=== PATIENT | female | born 1945 | race Caucasian/White ===

== ENCOUNTER 2019-02-25 12:21 | Inpatient (IN) | payer OTHER ==
[~2019-02-25] VITALS: Ht 167.6 cm; Wt 89.4 kg
--- NOTE | ~2019-02-25 | H ---
[facility] [place] [address] HISTORY AND PHYSICAL Name: MEI LÓPEZ Room #: 206-P ADM IN M.R.#: [id number] Admission: 02/25/19 Attend Phys: Pam Jorge MD Discharge: Date of : 49 Report #: [id number] THIS REPORT FOR: //name// CC: Silva Jorge DATE OF SERVICE: 02/25/2019 PRIMARY CARE PHYSICIAN: Dr. Pack. EMERGENCY CONTACT: Mr. Vinicio López, her son, at [phone]. CHIEF COMPLAINT: Chest pain. HISTORY OF PRESENT ILLNESS: The patient is a very pleasant 73-year-old female with a known history of hyperlipidemia, esophageal dilatation and chronic long-term dysphagia with a recent EGD done on 02/06/2019 at [facility]. The patient informs me that she has been doing fine after the EGD, her dysphagia symptoms have improved and overall she had been doing good; however, what happened today was something that she had never experienced before, the pain started in midsternal area and moved over to the left side under the breast area and then she felt like there was a belt all around her chest associated with lightheadedness and then the pain radiated to the upper back area with the pressure as if somebody is standing on her back and she got lightheaded. The patient informs me that she did not pass out. She was alert and awake and oriented all the time and her son called 911. When the paramedics gave her aspirin, nitroglycerin and fentanyl, the patient had significant relief of symptoms and by the time she arrived in the Emergency Room, her chest pain had completely resolved and she had only discomfort in the upper mid back area, which was also not as bad as she had before. 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 The patient denies any referred pain to the shoulder or arm or jaw or epigastric area. The patient has not had any hematochezia, melena and has not had any nausea or vomiting associated with this chest pain. The patient denies any dyspnea associated with this chest pain and during the exam, when asked about the pleuritic component to the chest pain, the patient had absolutely no chest pain with deep breathing and the patient denied any pleuritic component at home either. She denied any [facility] [address] [place] [address] HISTORY AND PHYSICAL Name: MEI LÓPEZ Room #: 206-P ADM IN M.R.#: [id number] Admission: 02/25/19 Attend Phys: Pam Jorge MD Discharge: Date of : 47 Report #: [id number] associated fever, chills, night sweats, cough or sputum production or sinus drainage in recent past. PAST MEDICAL HISTORY: Significant for: 1. Hyperlipidemia. 2. Chronic dysphagia. 3. Chronic constipation and irritable bowel syndrome. 4. Obesity. 5. Lot of stress in recent past for last 1 and 1/2 years. PAST SURGICAL HISTORY: Significant for lung surgery when the patient was 42 some years old with a spot on the lung, which was nonmalignant and had one-third of the lung removed at that time, the patient also had cholecystectomy 12 years ago and also had breast biopsy which was negative. 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 ALLERGIES: The patient has never had colonoscopy. FAMILY HISTORY: Mother with hypertension and Alzheimer's dementia, at the age of 89 years. Father with heart problems and aortic aneurysm and prostate cancer, but at the age of 87 years. CURRENT MEDICATIONS: 1. Vicodin p.r.n. for pain. 2. BuSpar for anxiety. 3. Levothyroxine for hypothyroidism. 4. Simvastatin for hyperlipidemia. 6. Aspirin 81 mg daily and she had taken aspirin today. REVIEW OF SYSTEMS: CONSTITUTIONAL: No fever, chills, night sweats. No weight gain or weight loss. HEENT: No sore throat, sinus drainage, ear infection. PULMONARY: Denies any cough or sputum production or dyspnea or pleuritic chest pain. CARDIOVASCULAR: Midsternal chest pain, which radiated to the left chest area and then to the back, but denies any orthopnea, paroxysmal nocturnal dyspnea or exertional dyspnea or exertional chest pain prior to this episode today. Denies any diaphoresis or dizziness associated with it. GASTROINTESTINAL: The patient denies any nausea, vomiting, diarrhea. Has had chronic dysphagia and chronic rectal tenesmus and chronic hemorrhoid related issues. The EGD had been done recently, but no other symptoms. No hematochezia or melena. GENITOURINARY: Denies any dysuria, hematuria, frequency or urgency of urination. MUSCULOSKELETAL: Denies any joint pain or swelling. SKIN: Denies any rash. [facility] [address] [place] [address] HISTORY AND PHYSICAL Name: MEI LÓPEZ Room #: 206-P [facility] IN .R.#: [id number] Admission: 02/25/19 Attend Phys: Pam Jorge MD Discharge: Date of : 47 Report #: [id number] NEUROLOGICAL: Denies any focal weakness or numbness or any TIA or stroke symptoms. PHYSICAL EXAMINATION: VITAL SIGNS: When the patient presented to the ER, temperature 36.7, heart rate 68, respirations 18, blood pressure 135/68, pulse oximetry 100% on room air. Body mass index of 33.1. GENERAL: Alert and oriented to time, place and person, very pleasant, lean and thin-appearing female who is very anxious and very stressed and tearful when she is talking about her passing away and leaving no life insurance or no financial resources for her and her son, but is absolutely in no cardiopulmonary distress. HEENT: Normocephalic, atraumatic. Pupils equally round, reactive to light. Conjunctivae clear. Sclerae nonicteric. Oropharynx clear. Mucous membranes moist. NECK: Supple, no JVD, no lymphadenopathy. HEART: S1, S2, regular. No murmur, no S3, no S4. No chest wall tenderness elicited. No pleuritic component to chest pain detected. LUNGS: Clear to auscultation bilaterally without any crackles or wheezes. ABDOMEN: Soft, nontender, nondistended, normal active bowel sounds. EXTREMITIES: No edema of both lower extremities. Pedal pulses present 2+. NEUROLOGIC: Completely nonfocal. RECTAL: The patient had rectal exam done by the ER provider and so I did not do rectal exam and Hemoccult was negative. LABORATORY DATA: Troponin less than 0.06 x 2. WBC 7.0, hemoglobin 13.8, hematocrit 42.6, platelet count 300, segmented neutrophil 66.9%. No bandemia noted. Chemistries indicate sodium 138, potassium 3.6, chloride 104, bicarbonate 28, anion gap 6, BUN 9, creatinine 1.1, GFR 49, glucose 102, calcium 9.5, total bilirubin 0.8, AST 20, ALT 22, alkaline phosphatase 89. Troponin I less than 0.06. Total protein 7.5, albumin 3.5. IMAGING: Electrocardiogram indicates abnormal R-wave progression with early transition and left ventricular hypertrophy noted and old inferior infarct noted. Chest x-ray indicates no acute cardiopulmonary abnormality. An elevated right hemidiaphragm noted. ASSESSMENT AND PLAN: 1. Nonexertional chest pain at rest with significant stress and hyperlipidemia. The patient is a lifetime nontobacco user and does not have any history of diabetes and hypertension; however, a family history of heart disease in the father has been noted. The patient has received 325 mg of aspirin by EMS and also nitroglycerin as well as fentanyl and that helped relieve her symptoms significantly. At this time, I would go ahead and continue 3 sets of cardiac [address] [address] HISTORY AND PHYSICAL Name: MEI LÓPEZ Room #: 206-P ADM IN M.R.#: [id number] Admission: 02/25/19 Attend Phys: Pam Jorge MD Discharge: Date of : 47 Report #: [id number] enzymes and will get echocardiogram tomorrow morning and Cardiology consult has been obtained by the Emergency Room provider. 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 If it is abnormal, then we will get a ventilation/perfusion scan. I would also go ahead and get TSH and D-dimer through the blood work. 2. Hemorrhoids and chronic blood loss and rectal tenesmus. We will go ahead and give her hydrocortisone suppository and we will also start Colace 100 mg daily and would consult Gastroenterology and will give intravenous Pepcid for gastrointestinal prophylaxis. Because of the active bleeding from hemorrhoids intermittently, I am not going to start the patient on Lovenox or heparin; however, when D-dimer is elevated, then we will give 1 time dose of Lovenox. 3. Renal insufficiency. The patient does not have any history of renal insufficiency and her GFR is 49 and a creatinine of 1.1. Would give gentle intravenous fluids overnight and recheck kidney function tomorrow morning. Keep potassium above 4 and magnesium above 2 and plan of care was discussed with the patient and her son who is present at the bedside and the patient wishes to be full code. Orders are written. By: [id number] Pam Jorge MD /nt
[~2019-02-25 12:21] MED LIST: ASPIR 8181 MG PO; BUSPIRONE HCL10 MG; IMIPRAMINE HCL10 M2 PO; LEVOTHYROXINE0.05 MG; NORCO 5-325 TA1 EACH PO; SIMVASTATIN10 MG
[2019-02-25 12:22] VITALS: BP 135/68
[2019-02-25 12:51] LABS: ABSOLUTE NEUTROPHILS 4.7 thou/uL (1.4-8.2); BASOPHILS 1.2 % (0.0-2.0); EOSINOPHILS 1.8 % (0.0-3.0); HEMATOCRIT 42.6 % (37.0-47.0); HEMOGLOBIN 13.8 gm/dL (12.0-15.0); LYMPHOCYTES 20.9 % (24.0-44.0); MCH 28.8 pg (26.0-34.0); MCHC 32.3 g/dL (28.0-37.0); MCV 89.1 fL (80.0-100.0); MONOCYTES 9.2 % (1.0-8.0); PLATELET COUNT 300 thou/uL (150-400); POLYS 66.9 % (36.0-66.0); RBC 4.78 mil/uL (4.20-5.00); RDW 15.4 % (10.5-14.5)
[2019-02-25 13:00] LABS: ANION GAP 6 mmol/L (7-16); BUN 9 mg/dL (7-18); CALCIUM 9.5 mg/dL (8.5-10.1); CHLORIDE 104 mmol/L (98-107); CO2 28 mmol/L (21-32); CREATININE 1.1 mg/dL (0.6-1.0); GLUCOSE 102 mg/dL (74-106); POTASSIUM 3.6 mmol/L (3.5-5.1); SODIUM 138 mmol/L (136-145)
[2019-02-25 13:10] LABS: ALBUMIN 3.5 g/dL (3.4-5.0); SGOT 20 U/L (15-37); SGPT 22 U/L (30-65); TOTAL BILIRUBIN 0.8 mg/dL (<0.1-1.0); TOTAL PROTEIN 7.5 g/dL (6.4-8.2); TROPONIN-I <0.06 ng/mL (<0.06)
[2019-02-25 14:08] VITALS: BP 127/61
[2019-02-25 15:00] VITALS: BP 135/77
--- NOTE | 2019-02-25 17:09 | NUR ---
PT CARE ASSUMED APPROX 1500. ARRIVED FROM ED WITH SON. ASSESSMENT CHARTED. PT DENIES PAIN AND SOA. VSS. WEANED TO RA. PT UP WITH STEADY GAIT. ORIENTED TO UNIT AND ROOM. BEDSIDE SWALLOW EVAL DONE AND PT WAS CLEARED FOR [facility] SOFT DIET. PT AGREEABLE. UPDATED TO POC. PT AND SON DENY QUESTIONS OR CONCERNS REGARDING POC. NO DISTRESS NOTED.
[2019-02-25 17:44] LABS: LIPASE 52 U/L (73-393)
[2019-02-25 18:05] LABS: TSH 25.55 uIU/mL (0.358-3.740)
[2019-02-25 19:49] LABS: AMYLASE 29 U/L (25-115)
[2019-02-25 21:00] VITALS: BP 127/49
[2019-02-26 00:14] VITALS: BP 127/56
--- NOTE | 2019-02-26 01:39 | NUR ---
ASSUMED CARE OF PATIENT AT 1900. VSS, AFEBRILE. ORDERS RECEIVED FOR STAT CTA. PATIENT TAKEN DOWN, RESULTS IN CHART. STARTED ON IV FLUIDS. DENIES ANY FURTHER PAIN, INSTRUCTIONS GIVEN TO CALL RN IMMEDIATELY IF PAIN RETURNS. STATES SHE HAS BEEN SEEING DR WILSON, A GI DR. PHONE # [phone]. HAD ESOPHAGEAL DILATION IN JANUARY. WAS TOLD THAT SHE WOULD HAVE TO HAVE THIS PROCEDURE AGAIN IN THE FUTURE. RESTING WELL AT THIS TIME, POC GOALS ESTABLISHED. WILL CONTINUE TO MONITOR.
[2019-02-26 04:32] VITALS: BP 139/71
[2019-02-26 05:31] LABS: ABSOLUTE NEUTROPHILS 3.9 thou/uL (1.4-8.2); BASOPHILS 0.7 % (0.0-2.0); EOSINOPHILS 2.3 % (0.0-3.0); HEMATOCRIT 38.6 % (37.0-47.0); HEMOGLOBIN 12.5 gm/dL (12.0-15.0); LYMPHOCYTES 19.8 % (24.0-44.0); MCH 28.9 pg (26.0-34.0); MCHC 32.5 g/dL (28.0-37.0); MCV 89.1 fL (80.0-100.0); MONOCYTES 11.4 % (1.0-8.0); PLATELET COUNT 269 thou/uL (150-400); POLYS 65.8 % (36.0-66.0); RBC 4.33 mil/uL (4.20-5.00); RDW 15.7 % (10.5-14.5); WBC 5.9 thou/uL (4.0-11.0)
[2019-02-26 05:51] LABS: ALBUMIN 3.1 g/dL (3.4-5.0); CALCIUM 8.7 mg/dL (8.5-10.1); TOTAL BILIRUBIN 0.5 mg/dL (<0.1-1.0); TOTAL PROTEIN 6.6 g/dL (6.4-8.2)
[2019-02-26 05:54] LABS: POTASSIUM 4.7 mmol/L (3.5-5.1)
[2019-02-26 08:00] VITALS: BP 136/80
--- NOTE | 2019-02-26 10:11 | EKG ---
[place] [address] [facility] [address] ELECTROCARDIOGRAM REPORT Name: MEI PATEL Room #: 206-P ADM IN M.R.#: [id number] Admission: 02/25/19 Attend Phys: Pam Jorge MD Discharge: Date of : 47 Report #: [id number] THIS REPORT FOR: //name// [facility] ED Test Date: 2019-02-25 Test Time: 12:24:31 Pat Name: MEI PATEL Department: Room: 206 Gender: F Cpas: SILVESTRE : 1945 Requested By: Bibi Rdz Order Number: [id number] MD: Stephen Verdugo Measurements Intervals [place] Rate: 86 P: 36 MN: 143 QRS: 5 QRSD: 114 T: 70 QT: 398 QTc: 476 Interpretive Statements Sinus rhythm Nonspecific T wave abnormality Borderline prolonged QT interval Compared to ECG 07/01/2004 00:47:43 No significant change was found Electronically Signed On 02-26-2019 10:10:58 WANT AD RECEIVER by Stephen Verdugo [email or web address] <ELECTRONICALLY SIGNED> By: Stephen Verdugo MD, [facility] 02/26/19 1010 1224 1224 Stephen Verdugo MD, [facility] /EPI
--- NOTE | 2019-02-26 10:17 | EKG ---
[place] [address] [facility] [place] [address] ELECTROCARDIOGRAM REPORT Name: MEI PATEL Room #: 206-P ADM IN M.R.#: [id number] Admission: 02/25/19 Attend Phys: Pam Jorge MD Discharge: Date of : 47 Report #: [id number] THIS REPORT FOR: //name// [facility] Test Date: 2019-02-25 Test Time: 16:00:06 Pat Name: MEI PATEL Department: Room: 206 Gender: F Pediatric Social Worker: Oren ALEXANDER : 1945 Requested By: Pam Jorge Order Number: [id number] MD: Stephen Verdugo Measurements Intervals [place] Rate: 66 P: 12 MO: 169 QRS: -16 QRSD: 98 T: 32 QT: 415 QTc: 435 Interpretive Statements Sinus rhythm Abnormal R-wave progression, early transition Left ventricular hypertrophy Compared to ECG 07/01/2004 00:47:43 No significant change was found Electronically Signed On 02-26-2019 10:16:50 CHECKER IN by Stephen Verdugo [email or web address] <ELECTRONICALLY SIGNED> By: Stephen Verdugo MD, [facility] 02/26/19 1016 1600 1600 Stephen Verdugo MD, [facility] /EPI
--- NOTE | 2019-02-26 10:19 | EKG ---
[place] [address] [facility] [place] [address] ELECTROCARDIOGRAM REPORT Name: MEI PATEL Room #: 206-P ADM IN M.R.#: [id number] Admission: 02/25/19 Attend Phys: Pam Jorge MD Discharge: Date of : 47 Report #: [id number] THIS REPORT FOR: //name// [facility] Test Date: 2019-02-25 Test Time: 17:51:40 Pat Name: MEI PATEL Department: Room: 206 P Gender: F [employer] Supervisor: Oren ALEXANDER : 1945 Requested By: Stephen Verdugo Order Number: [id number] MD: Stephen Verdugo Measurements Intervals [place] Rate: 76 P: 20 VA: 27 QRS: -1 QRSD: 120 T: 61 QT: 427 QTc: 481 Interpretive Statements Sinus rhythm Left ventricular hypertrophy Compared to ECG 07/01/2004 00:47:43 No significant change was found Electronically Signed On 02-26-2019 10:19:[address]NA[address] by Stephen Verdugo [email or web address] <ELECTRONICALLY SIGNED> By: Stephen Verdugo MD, [facility] 02/26/19 1019 1751 175 Stephen Verdugo MD, [facility] /EPI
[2019-02-26 11:00] VITALS: BP 141/66
--- NOTE | 2019-02-26 11:07 | HC ---
[facility] [place] [address] CONSULTATION Name: MEI PATEL Room #: 206-P ADM IN M.R.#: [id number] Admission: 02/25/19 Attend Phys: Pam Jorge MD Discharge: Date of : 47 Report #: [id number] THIS REPORT FOR: //name// CC: Silva Jorge DATE OF SERVICE: 02/25/2019 REASON FOR CONSULTATION: Epigastric pain. HISTORY OF PRESENT ILLNESS: The patient is a 73-year-old woman with limited past cardiac history. She awakened this morning with severe epigastric pain. This lasted for about 2-3 minutes and then was followed by radiation of the pain to her mid back. She reports it felt as if someone was standing on her back. This pain lasted for about 45 minutes. Paramedics were summoned. She was given multiple sequential nitroglycerin tablets without relief. She was given aspirin without relief and after single dose of fentanyl, her pain resolved. She has had no recurrent pain since. Serial cardiac enzymes have been normal. Presenting EKG was normal. She denies a cardiac history. Several years ago due to chest pain, she had coronary angiography performed, which was described as "pristine". She denies heart failure symptoms, palpitations, near syncope or syncope. She does have a history of what sounds like an esophageal stricture with dilatation procedure less than a month ago. She also reports that this epigastric pain was reminiscent to what she experienced prior to her gallbladder excision. ALLERGIES: There are no known drug allergies. MEDICATIONS: Include buspirone 10 mg daily, imipramine 10 mg daily, levothyroxine 0.05 mg daily, simvastatin and a baby aspirin. PAST MEDICAL HISTORY: Notable for cholecystectomy, lung surgery for removal of benign lung growth and dyslipidemia. SOCIAL HISTORY: Her recently. 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 Nonsmoker, nondrinker. FAMILY HISTORY: Unremarkable for premature coronary artery disease. REVIEW OF SYSTEMS: All systems negative except as that noted above. PHYSICAL EXAMINATION: GENERAL: A pleasant woman in no distress. VITAL SIGNS: Blood pressure is 130/70, heart rate is 65 and regular, respirations unlabored at 18. She is afebrile. [facility] [address] [place] [address] CONSULTATION Name: MEI PATEL Room #: [address] [place] [address] IN ..#: [id number] Admission: 02/25/19 Attend Phys: Pam Jorge MD Discharge: Date of : 47 Report #: [id number] HEENT: There are neither xanthelasma, subcutaneous xanthomata, oral mucosal or digital cyanosis or kyphoscoliosis present. CHEST: Clear to auscultation and percussion. CARDIAC: Regular rate and rhythm with normal S1, S2. No murmurs, gallops or rubs. ABDOMEN: Soft and nontender. EXTREMITIES: Without cyanosis, clubbing or edema. Radial pulses are 2+. NEUROLOGIC: She is alert with a nonfocal exam. Troponin levels are 0. White count 7.0, hemoglobin 13, hematocrit 42, platelet count 300. Creatinine 1.1, alkaline phosphatase 89. LABORATORY DATA: EKG, sinus rhythm with early R-wave progression. IMPRESSION: 1. Epigastric pain followed by mid back discomfort. 2. History of normal coronary vasculature within the past 10 years. 3. History of esophageal stricture with recent dilatation. 4. Prior cholecystectomy. RECOMMENDATIONS: 1. Serial cardiac enzymes and electrocardiograms. I doubt that this is related to some myocardial ischemia. 2. I agree with GI evaluation for this presentation. I have discussed these issues with the patient in detail. Thank you for asking me to participate in her care. <ELECTRONICALLY SIGNED> By: Stephen Verdugo MD, [facility] 02/26/19 1107 1727 2324 Stephen Verdugo MD, [facility]ACC /nt
--- NOTE | 2019-02-26 14:34 | NUR ---
ASSUMED CARE AT SHIFT CHANGE, ALERT AND ORIENTED X4, AND VSS. S/B DR HERNANDEZ AND GI, AND PATIENT AGREED ON STYING. AND WILL CONTINUE WITH POC.
--- NOTE | 2019-02-26 15:54 | 2DMMODE ---
[facility] [address] [place] [address] 2 D/M-MODE ECHOCARDIOGRAM Name: AMANDAMEI CYNTHIA Room #: 206-P ADM IN M.R.#: [id number] Admission: 02/25/19 Attend Phys: Pam Jorge, Discharge: Date of : 47 Report #: [id number] THIS REPORT FOR: //name// APPROVED REPORT Study performed: 02/26/2019 14:58:31 EXAM: Comprehensive 2D, Doppler, and color-flow Echocardiogram Patient Location: Bedside Room #: 206 Status: routine BSA: 1.99 HR: 78 bpm BP: 136/80 mmHg Rhythm: NSR Other Information Study Quality: Adequate Indications Chest Pain HLD 2D Dimensions RVDd: 23.22 mm IVSd: 10.47 (7-11mm) LVOT Diam: 19.78 (18-24mm) LVDd: 40.01 mm PWd: 10.58 (7-11mm) Ascending Ao: 23.70 (22-36mm) LVDs: 27.93 (25-40mm) Aortic Root: 23.26 mm IVC: 7.00 mm Volumes Left Atrial Volume (Systole) Single Plane 4CH: 53.73 mL Single Plane 2CH: 51.05 mL LA ESV Index: 29.00 mL/m2 Aortic Valve AoV Peak Rock.: 1.62 m/s AO Peak Gr.: 10.54 mmHg LVOT Max P.62 mmHg LVOT Max V: 0.95 m/s ERIN Vmax: 1.80 cm2 Mitral Valve E/A Ratio: 0.8 MV Decel. Time: 192.63 ms [facility] [place] [address] 2 D/M-MODE ECHOCARDIOGRAM Name: MEI PATEL Room #: 206-P [facility]#: [id number] Admission: 02/25/19 Attend Phys: Pam Jorge, Discharge: Date of : 49 Report #: [id number] MV E Max Rock.: 0.74 m/s MV A Rock.: 0.93 m/s MV PHT: 55.86 ms IVRT: 89.97 ms Pulmonary Valve PV Peak Rock.: 0.95 m/s PV Peak Gr.: 3.57 mmHg Pulmonary Vein P Vein S: 0.93 m/s P Vein A: 0.33 m/s P Vein D: 0.43 m/s P Vein A Dur.: 121.1 msec P Vein S/D Ratio: 2.16 Tricuspid Valve RAP Estimate: 5.00 mmHg Left Ventricle The left ventricle is normal size. There is normal left ventricular wall thickness. The left ventricular systolic function is normal. The left ventricular ejection fraction is within the normal range. LVEF is 55-60%. Mild diastolic dysfunction is present (impaired relaxation pattern). Right Ventricle The right ventricle is normal size. The right ventricular systolic function is normal. Atria The left atrium size is normal. The right atrium size is normal. Aortic Valve The aortic valve is mildly sclerotic. Trace aortic regurgitation. There is no aortic valvular stenosis. Mitral Valve The mitral valve is normal in structure. Trace to mild mitral regurgitation. No evidence of mitral valve stenosis. Tricuspid Valve The tricuspid valve is normal in structure. There is no tricuspid valve regurgitation noted. Unable to assess PA pressure. Pulmonic Valve The pulmonary valve is normal in structure. There is no pulmonic valvular regurgitation. [facility] [address] [place] [address] 2 D/M-MODE ECHOCARDIOGRAM Name: MEI PATEL Room #: 206-[facility] IN M.R.#: [id number] Admission: 02/25/19 Attend Phys: Pam Jorge, Discharge: Date of : 49 Report #: [id number] Great Vessels The aortic root is normal in size. IVC is normal in size and collapses >50% with inspiration. Pericardium There is no pericardial effusion. <Conclusion> The left ventricle is normal size. There is normal left ventricular wall thickness. The left ventricular systolic function is normal. Mild diastolic dysfunction is present (impaired relaxation pattern). The right ventricle is normal size. The left atrium size is normal. The aortic valve is mildly sclerotic. Trace to mild mitral regurgitation. There is no tricuspid valve regurgitation noted. <ELECTRONICALLY SIGNED> By: Gutierrez Leon MD 02/26/19 1554 1554 1554 Gutierrez Leon MD /INF
[2019-02-26 17:26] VITALS: BP 128/79
[2019-02-26 19:20] VITALS: BP 125/83
--- NOTE | 2019-02-26 20:31 | NUR ---
PATIENT TRANSFERRED FROM [address] [place] [address], REPORT FROM ROSE/BLUE. PATIENT A&O X 4. UP AD OSWALDO. DENIES PAIN. WILL CONTINUE TO MONITOR.
--- NOTE | 2019-02-27 01:55 | NUR ---
Assumed pt care @1900. A/OX4,VSS. Pt is up ad dax. Denied pain on assessment. Pt was wprking on bowel prep without problems to begin with but stated she cannot tolerate it that's why she has never had a colonoscopy in her life,nausea meds offered and pt encouraged to drink some w/o any luck. Pt stated she doesn't know why the DrLisbeth wants to do a colonoscopy she only needs an EGD,nurse had a 1:1 of importance of tests but pt does not seem interested in it. Will notify GI Dr. in AM of failure to complete bowel prep. Resting quietly at this time,call light within reach. No bowel movements reported yet. Will continue to monitor pt.
[2019-02-27 07:25] VITALS: BP 148/82
--- NOTE | 2019-02-27 10:36 | NUR ---
INITIAL ASSESSMENT: SW reviewed chart and spoke with nursing. Pt was admitted from home due to chest pain. GI consulted. Pt currently off the unit having an EGD. Per chart, pt is alert/orientated x 4. Pt lives at home. Prior to admission, pt was independent with ADLs. Pt's PCP is Dr. Silva Sandoval. Pt may discharge home later today pending EGD. No discharge needs anticipated at this time. [facility] is following to assist as needed with discharge planning.
[2019-02-27] MEDS ORDERED: PROTONIX40 M4 PO (14:35)
--- NOTE | 2019-02-27 15:00 | NUR ---
ASSUMED CARE OF PATIENT AT 0715, PATIENT ALERT AND ORIENTED X 4. PATIENT UP AD OSWALDO. NPO THIS AM FOR EGD. NO C/O PAIN OR NAUSEA THIS AM. VSS. PATIENT HAS LEFT AC IV WITH NS AT 75CC/HR. PATIENT LEFT FLOOR ABOUT 0830 FOR PROCEDURE. REPORT RECEIVED FROM [facility]/GI LAB. PATIENT BACK ON THE UNIT, TOOK AM MEDS. THIS RN NOTIFIED DR HERNANDEZ, LEIGH/REHAB CARE ASSISTANT RETURNED CALL FOR DIET ORDER, ORDER FOR REGULAR DIET IN COMPUTER FOR LUNCH. DR HERNANDEZ CAME THIS AFTERNOON TO SEE THE PATIENT, RECEIVED ORDER FOR DISCHARGE TO HOME. PATIENT WILL WAIT FOR SON TO TRANSPORT HOME. WILL CONTINUE TO MONITOR.
[2019-02-27 16:39] VITALS: BP 148/82
== END 2019-02-27 17:15 | disposition home or self-care (01) | DRG 392 ==
LOC: ER 12:21 → 2N 13:52 → EROBS 13:52 → 4N 13:52 → 2N 14:54 → 4N 02-26 16:53 → ENTRNSPT 02-27 16:43 → 4N 02-27 17:15
PROVIDERS: Internal Medicine; Physician Assistant; ADMIT Internal Medicine
PROC: 0DJ08ZZ Inspection of Upper Intestinal Tract, Via Natural or Artificial Opening Endoscopic (ICD-10-PCS; principal; 2019-02-27)
DX: K22.2 Esophageal obstruction (principal); N17.9 Acute kidney failure, unspecified; K21.9 Gastro-esophageal reflux disease without esophagitis; Z90.49 Acquired absence of other specified parts of digestive tract; E78.5 Hyperlipidemia, unspecified; E66.9 Obesity, unspecified; K58.1 Irritable bowel syndrome with constipation; K64.9 Unspecified hemorrhoids; R19.8 Other specified symptoms and signs involving the digestive system and abdomen; R13.10 Dysphagia, unspecified; E03.9 Hypothyroidism, unspecified; F41.9 Anxiety disorder, unspecified; Z68.33 Body mass index [BMI] 33.0-33.9, adult; Z82.49 Family history of ischemic heart disease and other diseases of the circulatory system; Z79.899 Other long term (current) drug therapy
CPT/HCPCS: 10091; 10194; 62110; 62900; 70005